=== PATIENT | female | born 1960 | race Caucasian/White ===

== ENCOUNTER → 2017-01-23 | Day surgery (SDC) | payer OTHER ==
[~2017-01-23] MED LIST: ALLERGY SINUS-1 EACH PO; AMBIEN; ASPIRIN EC81 M1 PO; CALCIUM 600 +1 EAC9 PO; CELEBREX; CELECOXIB200 MG PO; CLINDAMYCIN HC300 MG PO; EFFEXOR; FEMARA2.5 MG; FISH OIL 1,0001 EAC4 PO; FLEXERIL PO; GLUCOSAMINE CH1 EAC5 PO; LEVOXYL50 MC1 PO; METOPROLOL SUCC25 MG PO; MOTRIN400 MG PO; MULTI-DAY VITA1 EACH PO; PRAVACHOL; SIMVASTATIN40 MG PO; TRAMADOL HCL50 M1 PO; VITAMIN D32000 UNIT PO; ZESTORETIC 10-1 EAC1 PO; ZOLPIDEM TART6.25 M1 PO
--- NOTE | ~2017-01-23 | OR ---
Unit #: [id number] #: [id number] Patient: BRADEN WOODS [id number] [address] [place], [place] [address] [id number] O MR#: [id number] NAME: BRADEN WOODS ROOM: Date of Procedure: 01/23/2017 Admission Date: 01/23/2017 Surgeon: Bulmaro Camarillo M.D. : 1960 Attending Physician: Bulmaro Camarillo M.D. Primary Care Physician: Emy Rodriguez M.D. OPERATIVE REPORT PREOPERATIVE DIAGNOSES 1. Back pain. 2. Lumbar spondylosis. 3. Lumbar facet disease. POSTOPERATIVE DIAGNOSES 1. Back pain. 2. Lumbar spondylosis. 3. Lumbar facet disease. PROCEDURE PERFORMED Bilateral L3-L4 and L4-L5 lumbar facet injections with intravenous sedation and fluoroscopic guidance, this is for diagnostic and therapeutic reasons. INDICATIONS FOR PROCEDURE The patient is a 56-year-old female, whose primary complaint of complaints of back pain was longstanding and has worsened significantly over the last several months and has not settled with conservative treatment. Examination is consistent with facet etiology. Workup demonstrated facet disease, most significant at the L3-L4 level, worse to the right than the left with synovial cyst also moderate at the L4-L5 levels. The plan is for diagnostic and therapeutic facet injections. DESCRIPTION OF PROCEDURE The patient was placed in a prone position. Standard monitors were applied. 2 mg of Versed were given for sedation and anxiolysis, which were adequate. Vital signs remained stable. Sterile prep and drape then of the lumbar area was performed. Fluoroscopy was used to identify the location of right-sided L3-L4 and L4-L5 facet joints. The skin overlying this localized with 1% lidocaine. At each of these levels, a 22-gauge Quincke point spinal needle was advanced with biplanar fluoroscopic guidance to bring the needle tip to within the edge of the respective facet joints. After this was confirmed with fluoroscopy, a dose of 1.5 mL of a mixture of 80 mg of Depo-Medrol and 2 mL of 0.25% bupivacaine were deposited, about a 0.5 mL within the joint and about 1 mL just outside the joint. The needles were flushed and removed. The patient tolerated this part of procedure well. The exact same procedure was then repeated on the left overlying the L3-L4 and L4-L5 facet joints. The same dosing of medication was deposited in those respective joints after fluoroscopy used to identify proper needle tip placement. The needles were flushed and removed. The patient tolerated the procedure well and was discharged to [facility] #: [id number] #: [id number] Patient: BRADEN WOODS the recovery room in stable condition. Dictated by... Candida Stevens/craig TD: 01/24/2017 00:09 JOB #: [id number] OPERATIVE REPORT Page 1 of 1 X Bulmaro Camarillo MD X PROCEDURE OPERATIVE NOTE
== END | disposition home or self-care (01) ==
LOC: CCSC 08:49
DX: M47.816 Spondylosis without myelopathy or radiculopathy, lumbar region (principal); I10 Essential (primary) hypertension; E03.9 Hypothyroidism, unspecified; E78.00 Pure hypercholesterolemia, unspecified
CPT/HCPCS: J1040; J2250

== ENCOUNTER → 2017-03-01 | Day surgery (SDC) | payer OTHER ==
--- NOTE | ~2017-03-01 | OR ---
Unit #: [id number] #: [id number] Patient: BRADEN WOODS [id number] [address] [place], [place] [address] [id number] O MR#: [id number] NAME: BRADEN WOODS ROOM: Date of Procedure: 03/01/2017 Admission Date: 03/01/2017 Surgeon: Bulmaro Camarillo M.D. : 1960 Attending Physician: Bulmaro Camarillo M.D. Primary Care Physician: Emy Rodriguez M.D. PROCEDURE OPERATIVE NOTE PREOPERATIVE DIAGNOSIS Back pain, lumbar facet disease. POSTOPERATIVE DIAGNOSIS Back pain, lumbar facet disease. PROCEDURE PERFORMED Lumbar facet injection x2 levels with intravenous sedation and fluoroscopic guidance for needle localization. HISTORY The patient is a 56-year-old female with back pain felt to be due to significant facet disease, failed to settle with conservative treatment along, so the plan was a trial of facet injections. Initial injection helped somewhat but did not last long as needed, so plan is to repeat a second injection and see if she does somewhat better with this. If not, she may be a candidate for radiofrequency ablation. PROCEDURE The patient was placed in a prone position. Standard monitors were applied. Versed, 2 mg, was given for sedation and anxiolysis, which was adequate. Vital signs remained stable. Sterile prep and drape, then, of the lumbar area was performed. The skin, then, overlying the left L3-4, L4-5 facets was localized with 1% lidocaine. A 22-gauge Quincke spinal needle was then advanced with fluoroscopic guidance (1) edge of the facet joints. After confirming this with fluoroscopy a dose of 1 mL of a mixture of 80 mg of Depo-Medrol and 3 mL of 0.25% bupivacaine were deposited. The needle was flushed and removed. The exact same procedure was then repeated on the right at the right 3-4 and 4-5 facet joints. Again, after confirming proper positioning, a dose of 1 mL of a mixture of 80 mg of Depo-Medrol and 3 mL of 0.25% bupivacaine were deposited. The needle was flushed and removed. Dictated by... Bulmaro Camarillo M.D. DEVP/ivan TD: 03/01/2017 10:57 JOB #: [id number] Unit #: [id number] #: [id number] Patient: BRADEN WOODS PROCEDURE OPERATIVE NOTE Page 1 of 1 X Bulmaro Camarillo MD X PROCEDURE OPERATIVE NOTE
== END | disposition home or self-care (01) ==
LOC: CCSC 08:59
DX: M47.26 Other spondylosis with radiculopathy, lumbar region (principal); M53.86 Other specified dorsopathies, lumbar region
CPT/HCPCS: J1040; J2250